=== PATIENT | female | born 1990 | race Caucasian/White ===

== ENCOUNTER 2018-08-07 10:17 | Inpatient (IN) | payer OTHER ==
[~2018-08-07] VITALS: Ht 162.6 cm; Wt 60.3 kg
[2018-08-30] MEDS ORDERED: PRENATAL TABLE1 EAC1 PO (15:20)
[2018-08-30] MEDS ORDERED: IRON325 MG PO (15:21)
[2018-08-30] MEDS ORDERED: INFED50 MG/ML IJ (15:22)
== END 2018-09-01 13:01 | disposition home or self-care (01) | DRG 807 ==
LOC: LDR 08-30 15:10 → OB/GYN 08-30 20:27
PROVIDERS: ADMIT Obstetrics & Gynecology Maternal & Fetal Medicine
PROC: 10E0XZZ Delivery of Products of Conception, External Approach (ICD-10-PCS; principal; 2018-08-30)
PROC: 10907ZC Drainage of Amniotic Fluid, Therapeutic from Products of Conception, Via Natural or Artificial Opening (ICD-10-PCS; 2018-08-30)
PROC: 0W8NXZZ Division of Female Perineum, External Approach (ICD-10-PCS; 2018-08-30)
PROC: 4A1HXCZ Monitoring of Products of Conception, Cardiac Rate, External Approach (ICD-10-PCS; 2018-08-30)
DX: O80 Encounter for full-term uncomplicated delivery (principal); Z37.0 Single live birth; Z3A.38 38 weeks gestation of pregnancy